=== PATIENT | female | born 1990 | race Two or more races ===

== ENCOUNTER 2017-03-04 03:57 | Emergency (ER) | payer SELFPAY ==
[~2017-03-04] VITALS: Ht 157.5 cm; Wt 70.3 kg
--- NOTE | ~2017-03-04 | EKG ---
PATIENT: MELINDA KULKARNI UNIT #: [id number] Ventricular Rate: 82 BPM Atrial Rate: 82 BPM P-R Interval: 130 ms QRS Duration: 76 ms Q-T Interval: 362 ms QTC Calculation(Bezet): 422 ms P [place]: 40 degrees Calculated R [place]: 26 degrees Calculated T [place]: 16 degrees Diagnosis Line: Normal sinus rhythm Diagnosis Line: Normal ECG Diagnosis Line: No previous ECGs available Diagnosis Line: Confirmed by MAKEDA SMILEY MD ([id number]) on 03/06/2017 Diagnosis Line: 7:01:41 PM INTERPRETING MD: BALJIT CORDOVA
[2017-03-04] MEDS ORDERED: PRENATAL FORMU1 EAC1 PO (04:05)
[2017-03-04] MEDS ORDERED: ACID REDUCER (04:05)
[2017-03-04] MEDS ORDERED: ZOFRAN ODT4 M1 SL (04:06)
== END 2017-03-04 04:56 | disposition home or self-care (01) ==
LOC: SED 03:57
DX: K21.9 Gastro-esophageal reflux disease without esophagitis (principal); Z79.899 Other long term (current) drug therapy
CPT/HCPCS: 93005; 99284